=== PATIENT | male | born 1950 | race Caucasian/White ===

== ENCOUNTER → 2024-10-19 12:32 | Outpatient (REF) | payer MEDICARE, SELFPAY | LOC: WOUND 12:32 | PROVIDERS: ATTENDING PHYSICIAN Surgery; FAMILY PHYSICIAN Family Medicine | DX: M25.422 Effusion, left elbow (principal); S06.9X9S Unspecified intracranial injury with loss of consciousness of unspecified duration, sequela; X58.XXXS Exposure to other specified factors, sequela; G82.20 Paraplegia, unspecified; J41.1 Mucopurulent chronic bronchitis; M62.81 Muscle weakness (generalized); F33.42 Major depressive disorder, recurrent, in full remission | CPT/HCPCS: 99203 ==

== ENCOUNTER → 2024-10-24 13:44 | Outpatient (REF) | payer MEDICARE, SELFPAY | LOC: WOUND 13:44 | PROVIDERS: ATTENDING PHYSICIAN Surgery; FAMILY PHYSICIAN Family Medicine | DX: M25.422 Effusion, left elbow (principal); S06.9X9S Unspecified intracranial injury with loss of consciousness of unspecified duration, sequela; G82.20 Paraplegia, unspecified; F33.42 Major depressive disorder, recurrent, in full remission; J41.1 Mucopurulent chronic bronchitis; M62.81 Muscle weakness (generalized) | CPT/HCPCS: 99213 ==

== ENCOUNTER → 2024-10-30 11:22 | Outpatient (REF) | payer MEDICARE, SELFPAY | LOC: WOUND 11:22 | PROVIDERS: ATTENDING PHYSICIAN Surgery | DX: M25.422 Effusion, left elbow (principal); L03.114 Cellulitis of left upper limb; S06.9X9S Unspecified intracranial injury with loss of consciousness of unspecified duration, sequela; G82.20 Paraplegia, unspecified; F33.42 Major depressive disorder, recurrent, in full remission; J41.1 Mucopurulent chronic bronchitis; M62.81 Muscle weakness (generalized) | CPT/HCPCS: 99213 ==

== ENCOUNTER 2024-10-30 11:44 | Emergency (ER) | payer MEDICARE, SELFPAY ==
[2024-10-30 11:53] VITALS: BP 159/89
--- NOTE | 2024-10-30 13:29 | ED.GENMED ---
History of Present Illness
<Josefa Chang MD, Resident - Last Filed: 10/30/24 15:54>
General
Chief Complaint: Skin Problem
Time Seen by Provider: 10/30/24 12:59
History of Present Illness
History of Present Illness:
74 y/o male with pmhx of HTN, COPD, TBI presenting to the ED with progressive swelling of left upper extremity. Pt was seen by Dr. Davis at wound [facility] and was advised to come to the ED to be admitted for surgical drainage of olecranon
bursitis in the OR. Pt had a fall in August and was seen by an orthopedics doctor. X ray was negative for fracture at that time. Pt has been seeing wound care since September for olecranon bursitis but has symptoms have worsened over the past week.
Was seen by his PCP and was started on Bactrim since Wednesday. Denies any systemic symptoms. Patient has an appointment with his orthopedic doctor on .
Past History
<Josefa Chang MD, Resident - Last Filed: 10/30/24 15:54>
Past History
ED Past Medical History: COPD, HTN, Seizures and Other (Traumatic brain injury)
ED Past Surgical History: Other
Social History
Tobacco: Non-smoker
Alcohol: None
Drug: None
Personal: Other
Living: assisted living
Employment: Not employed
Family History
Family History: Other
Review of Systems
<Josefa Chang MD, Resident - Last Filed: 10/30/24 15:54>
Review of Systems
Constitutional: Reports no symptoms
EENT: Reports no symptoms
Respiratory: Reports no symptoms
Cardiac: Reports no symptoms
ABD/GI: Reports no symptoms
: Reports no symptoms
Musculoskeletal: Reports other (left elbow pain)
Skin: Reports other (swelling of left arm)
Neurological: Reports no symptoms
Endocrine: Reports no symptoms
Hematologic/Lymphatic: Reports no symptoms
Psychiatric: Reports no symptoms
Phy Exam
<Josefa Chang MD, Resident - Last Filed: 10/30/24 15:54>
Physical Exam
Physical Exam:
GENERAL: Alert, in no apparent distress, c/w TBI
EYE: pupils equal and reactive
NECK: Supple, no significant adenopathy.
ENT: o/p clr, mmm.
CARDIAC: Regular rate and rhythm.
LUNGS: Clear breath sounds bilaterally, no acute respiratory distress, no wheezes/rales/rhonchi
ABDOMEN: Soft, without focal tenderness, no r/g, no cvat
NEUROLOGICAL: Alert and oriented, disconjugate gaze, equal weakness of all extremities.
SKIN: Warm and dry, skin intact.
MUSCULOSKELETAL: No edema, well perfused.
Left Upper Extremity: Swelling of the left upper extremity from elbow to hand. Olecranon bursitis with open draining wound (serosanguinous fluid). Warm, tender, and red on touch. Distal pulses palpated. ROM normal.
PSYCH: Limited judgement and insight, appropriate interaction.
Course
<Josefa Chang MD, Resident - Last Filed: 10/30/24 15:54>
Orders/Labs/Results
Orders:
Orders
10/30/24 13:55
Basic Metabolic Panel Urgent
Complete Blood Count/With Diff Urgent
10/30/24 14:04
Wound Culture [Wound/Abscess/Other Culture] Urgent
WILFRIDO Source: Elbow
Specimen Description: Left
Date Specimen was Collected: 10/30/24
Time Specimen was Collected: 13:57
Abnormal Lab Results
10/30/24
13:55
MCHC 32.8 L g/dL
(33.0-37.0)
Absolute Monos (auto) 1.2 H 10^3/uL
(0.1-0.6)
Monocytes % 13.6 H %
(1.7-9.3)
Glucose 109 H mg/dl
(70-99)
10/30/24 13:55
10/30/24 13:55
Vital Signs
Initial and Last Documented VS:
Initial Vital Signs
Temp Pulse Resp BP Pulse Ox
98.4 F 74 16 159/89 96
10/30/24 11:53 10/30/24 11:53 10/30/24 11:53 10/30/24 11:53 10/30/24 11:53
Last Documented Vital Signs
Temp Pulse Resp BP Pulse Ox
98.4 F 78 18 153/64 99
10/30/24 11:53 10/30/24 14:00 10/30/24 14:00 10/30/24 14:00 10/30/24 14:18
<Loyd Lamas, DO - Last Filed: 10/30/24 15:15>
Orders/Labs/Results
Orders:
Orders
10/30/24 13:55
Basic Metabolic Panel Urgent
Complete Blood Count/With Diff Urgent
10/30/24 14:04
Wound Culture [Wound/Abscess/Other Culture] Urgent
WILFRIDO Source: Elbow
Specimen Description: Left
Date Specimen was Collected: 10/30/24
Time Specimen was Collected: 13:57
Abnormal Lab Results
10/30/24
13:55
MCHC 32.8 L g/dL
(33.0-37.0)
Absolute Monos (auto) 1.2 H 10^3/uL
(0.1-0.6)
Monocytes % 13.6 H %
(1.7-9.3)
Glucose 109 H mg/dl
(70-99)
10/30/24 13:55
10/30/24 13:55
Vital Signs
Initial and Last Documented VS:
Initial Vital Signs
Temp Pulse Resp BP Pulse Ox
98.4 F 74 16 159/89 96
10/30/24 11:53 10/30/24 11:53 10/30/24 11:53 10/30/24 11:53 10/30/24 11:53
Last Documented Vital Signs
Temp Pulse Resp BP Pulse Ox
98.4 F 78 18 153/64 99
10/30/24 11:53 10/30/24 14:00 10/30/24 14:00 10/30/24 14:00 10/30/24 14:18
<Josefa Chang MD, Resident - Last Filed: 10/30/24 15:54>
MDM/Problems Addressed
Differential Diagnosis Includes:
Acute olecranon bursitis
Infection of the soft tissue
MDM/Problems Addressed:
- CBC, CMP
- Discussed case with orthopedic physician, Dr. Childs, at 13.[address] Childs is able to take patient to the OR on Wednesday. Given patient is hemodynamically stable, we will wait for labs to decide outpatient vs inpatient follow-up.
<Josefa Chang MD, Resident - Last Filed: 10/30/24 15:54>
*Critical Care Note
Total Time (30-74mins, 75-104mins- exclusive of procedures): Not Applicable
ED Attending Note
<Josefa Chang MD, Resident - Last Filed: 10/30/24 15:54>
-
Portions of this chart may have been created with voice recognition software.� Occasional wrong word or��sound alike� substitutions may have occurred due to the inherent limitations of voice recognition software.
<Loyd Lamas DO - Last Filed: 10/30/24 15:15>
ED Attending Note
Patient seen and examined by attending physician: Yes
I performed a history and physical exam of patient and discussed management with resident, I reviewed resident's note and agree with documented findings and plan of care.: Yes
ED Attending Note:
I evaluated at bedside. I also communicated with Dr. Childs. White blood cell count is normal. Dr. Childs recommends outpatient management. I spoke to Dr. Davis earlier. He does have evidence of olecranon bursitis on exam with
serosanguineous drainage but no warmth or significant erythema. He does have cognitive deficits and disconjugate gaze.
Discharge Plan
Departure
Patient Disposition: Home (Routine Discharge)
Date of Disposition: 10/30/24
Time of Disposition: 15:11
Patient with high blood pressure during this ER visit?: Yes
Discharge Problem:
Bursitis, olecranon
Instructions: Olecranon Bursitis (DC)
Prescriptions:
No Action
propranolol 80 MG capsule,extended release 24 hr
160 mg PO DAILY
atorvastatin 10 MG tablet
10 mg PO DAILY
loperamide 2 MG capsule
4 mg PO Q4HPRN MDD 16MG/24 HOUR PRN (Reason: LOOSE STOOL)
divalproex 250 MG tablet,delayed release (DR/EC)
250 mg PO BID
Patient Comments:
04/02/2022: TAKEN W/ 500MG = 750MG
propranolol 60 MG capsule,extended release 24 hr
60 mg PO DAILY
divalproex 500 MG tablet,delayed release (DR/EC)
500 mg PO BID
Patient Comments:
04/02/2022: TAKEN W/ 250MG = 750MG
acetaminophen [Tylenol Extra Strength] 500 MG tablet
1,000 mg PO Q6HPRN PRN (Reason: mild pain/fever)
guaifenesin [Diabetic Tussin EX] 200 MG/10 ML liquid
200 mg PO Q6HPRN PRN (Reason: cough)
aspirin 325 MG tablet,delayed release (DR/EC)
325 mg PO DAILY
tamsulosin 0.4 MG capsule
0.4 mg PO HS
mirtazapine 15 MG tablet
15 mg PO HS
albuterol sulfate 1 PUFF HFA aerosol inhaler
2 puff inhalation R Q4HPRN PRN (Reason: asthma)
multivitamin with folic acid [Tab-A-Glenn] 1 TABLET tablet
1 tab PO QPM
ketoconazole 2 % Cream
1 applic TOPICAL BIDPRN PRN (Reason: antifungal)
Referrals:
Douglas Bower MD [Family Provider] -
Activity Restrictions/Additional Instructions:
The white blood cell count is normal. I did speak to Dr. Davis earlier. I also spoke to Dr. Childs (orthopedics with [facility]). He states that somebody from the office will be calling to help arrange close follow-up. Continue Bactrim for now.
Interventions
Interventions:
*Risk Screen - Suicide Last Done: 10/30/24 13:40
*General Assessment Last Done: 10/30/24 13:40
*Neglect/Abuse Screening Last Done: 10/30/24 13:40
ED- Fall Risk Assessment Last Done: 10/30/24 15:35
*ED COVID-19 Vaccine History Last Done: 10/30/24 13:40
*Nursing Disposition Last Done: 10/30/24 15:35
ED-Skin Assessment Last Done: 10/30/24 12:40
Discharge Date and Time
Discharge Date/Time: 10/30/24 15:36
Print Language: WELSH
[2024-10-30 14:00] VITALS: BP 153/64
[2024-10-30 14:15] LABS: % Basophils 0.7 % (0-2); % Eosinophils 3.8 % (0-6); % Immature Granulocytes 0.3 % (0-0.5); % Lymphocytes 25.3 % (20.5-51.1); % Monocytes 13.6 % (1.7-9.3); % Neutrophils 56.3 % (42.2-75.2); Absolute Basophils 0.1 10^3/uL (0-0.2); Absolute Eosinophils 0.3 10^3/uL (0-0.7); Absolute Lymphocytes 2.2 10^3/uL (1.2-3.4); Absolute Monocytes 1.2 10^3/uL (0.1-0.6); Absolute Neutrophils 4.9 10^3/uL (1.4-6.5); Hematocrit 46.1 % (39.0-52.0); Hemoglobin 15.1 g/dL (13.0-18.0); Mean Corp Hgb Conc. 32.8 g/dL (33.0-37.0); Mean Corpuscular Hgb 29.8 pg (27.0-31.0); Mean Corpuscular Volume 91.1 fL (80.0-94.0); Mean Platelet Volume 8.7 fL (7.4-10.4); Nucleated Red Blood Cells % 0 % (-); Platelet Count 220 10^3/uL (130-400); Red Blood Cell Count 5.06 10^6/uL (4.70-6.10); Red Cell Dist. Width 12.6 % (11.5-14.5); White Blood Cell Count 8.7 10^3/uL (4.8-10.8)
[2024-10-30 14:30] LABS: Blood Urea Nitrogen 17 mg/dl (9-20); Calcium 9.2 mg/dl (8.4-10.2); Carbon Dioxide 28 mmol/L (22-30); Chloride 100 mmol/L (98-107); Glucose 109 mg/dl (70-99); Sodium 138 mmol/L (135-145); eGFR > 60.00
== END 2024-10-30 15:36 | disposition home or self-care (01) ==
LOC: EMR 11:44
PROVIDERS: EMERGENCY PHYSICIAN Emergency Medicine; FAMILY PHYSICIAN Family Medicine
DX: M70.22 Olecranon bursitis, left elbow (principal); I10 Essential (primary) hypertension
CPT/HCPCS: 99283; 80048; 85025; 87070; 87205

== ENCOUNTER 2024-11-02 19:50 | Emergency (ER) | payer MEDICARE, SELFPAY ==
[2024-11-02 19:54] VITALS: BP 133/78; BMI 31.2
--- NOTE | 2024-11-02 20:32 | ED.GENMED ---
History of Present Illness
General
Chief Complaint: Fall
Source: patient and custodial records
Exam Limitations: none
Time Seen by Provider: 11/02/24 20:01
History of Present Illness
History of Present Illness:
This is a 74 year old male that comes in with by ambulance with c/o fall. States that he doesn't walk well due to the TBI. States that he fell tonight and hit the left elbow. States that he had some bleeding so they sent patient in. Patient states
that he did not hit his head or have any LOC. Denies any fever, chills, chest pain, SOB, abd pain, nausea, vomiting, diarrhea, headache, dizziness, urinary burning.
Past History
Past History
ED Past Medical History: COPD, CVA, HTN, Seizures, Psychiatric (Depression) and Other (Traumatic brain injury, Spinal stenosis, Diverticulosis, Glaucoma, )
ED Past Surgical History: Orthopedic (Spinal surgery, Left elbow surgery) and Other (Right hernia repair)
Social History
Tobacco: Former smoker
Alcohol: None
Drug: None
Personal: Other
Living: assisted living
Employment: Not employed
Family History
Family History: Other
Review of Systems
Review of Systems
All Other Systems: ROS reviewed and negative except as documented in HPI and ROS
Constitutional: Reports no symptoms; Denies fever or chills
EENT: Reports no symptoms
Respiratory: Reports no symptoms; Denies cough or trouble breathing
Cardiac: Reports no symptoms; Denies chest pain
ABD/GI: Reports no symptoms; Denies abdominal pain, nausea, vomiting or diarrhea
: Reports no symptoms; Denies dysuria, frequency or urgency
Musculoskeletal: Reports other (Bleeding from surgical site left elbow)
Skin: Reports no symptoms
Neurological: Reports no symptoms; Denies dizzy or headache
Psychiatric: Reports no symptoms
Phy Exam
General Physical Exam
General Presentation: no apparent distress
General age: appears stated age
General Skin: warm and dry
General Habitus: elderly
General Mental: usual mental status (Able to answer questions)
General Hydration: appears well hydrated
ENT Exam
ENT Exam: TM's normal, pharynx normal and neck supple
Cardiovascular Exam
Cardiovascular Exam: regular rate/rhythm, no edema and normal peripheral pulses
Pulmonary Exam
Pulmonary Exam: lungs clear, no respiratory distress, no rales, chest non tender, no crackles, no rhonchi, no wheezing and no cough
Gastrointestinal Exam
Gastrointestinal Exam: normal bowel sounds, non tender, soft, no organomegaly, no pulsatile mass and non distended
Musculoskeletal Exam
Musculoskeletal Exam: full ROM and other (Left elbow dressing taken down. No active bleeding at this time. Senath noted. )
Skin Exam
Skin Exam: normal color, warm/dry, no rash, no petechia and other (Left elbow incision line with romulo clean and dry. Negative for any redness)
Psychiatric Exam
Psychiatric Exam: normal mood/affect
Course
Orders/Labs/Results
Orders:
Orders
11/02/24 20:31
Elbow, 3 view, Left [CR Elbow - Left Min 3 Views ] Urgent
Comment:
Reason For Exam: fall, recent surgery
Vital Signs
Initial and Last Documented VS:
Initial Vital Signs
Temp Pulse Resp BP Pulse Ox
98.3 F 73 16 133/78 98
11/02/24 19:54 11/02/24 19:54 11/02/24 19:54 11/02/24 19:54 11/02/24 19:54
Last Documented Vital Signs
Temp Pulse Resp BP Pulse Ox
98.3 F 74 16 133/78 98
11/02/24 19:54 11/02/24 20:00 11/02/24 19:54 11/02/24 19:54 11/02/24 19:54
MDM/Problems Addressed
Differential Diagnosis Includes:
Bleeding from surgical site
MDM/Problems Addressed:
This is a 74 year old male that comes in with c/o bleeding form the left elbow after fall. States that he did not hit his head or have any LOC. states that with his brain injury it makes it hard for him to walk.
Will get X-ray and redress surgical site.
Back into see patient. Explained that his X-ray is negative for any acute process. Dressing has been applied and there has not been any further bleeding. Patient to follow up with the paid search specialist. Return with any concerns.
Chronic conditions affecting care:
NA
Acute Exacerbation and/or Progression of Chronic Illness:
NA
*Radiology
Radiology exam reviewed: radiology read reviewed (left elbow-Postsurgical change of the left elbow. No evidence of acute osseous injury. Mild degenerative disease. )
*Pulse Oximetry
Patient hypoxic: no
*EKG
Interpreted by ED Provider?: NA
Rate: EKG- N/A
*Multifold Operator Interpretation
Rate: Multifold Operator- N/A
*Critical Care Note
Total Time (30-74mins, 75-104mins- exclusive of procedures): Not Applicable
ED Attending Note
-
Portions of this chart may have been created with voice recognition software.� Occasional wrong word or��sound alike� substitutions may have occurred due to the inherent limitations of voice recognition software.
Discharge Plan
Departure
Patient Disposition: Home (Routine Discharge)
Date of Disposition: 11/02/24
Time of Disposition: 22:44
Patient with high blood pressure during this ER visit?: Yes
Condition: Good
Covid-19: Not Applicable
Discharge Problem:
Accidental fall, Bleeding from surgical site
Instructions: Wound Care (DC), Preventing falls in adults, BLOOD PRESSURE
Prescriptions:
No Action
propranolol 80 MG capsule,extended release 24 hr
160 mg PO DAILY
atorvastatin 10 MG tablet
10 mg PO DAILY
loperamide 2 MG capsule
4 mg PO Q4HPRN MDD 16MG/24 HOUR PRN (Reason: LOOSE STOOL)
divalproex 250 MG tablet,delayed release (DR/EC)
250 mg PO BID
Patient Comments:
04/02/2022: TAKEN W/ 500MG = 750MG
propranolol 60 MG capsule,extended release 24 hr
60 mg PO DAILY
divalproex 500 MG tablet,delayed release (DR/EC)
500 mg PO BID
Patient Comments:
04/02/2022: TAKEN W/ 250MG = 750MG
acetaminophen [Tylenol Extra Strength] 500 MG tablet
1,000 mg PO Q6HPRN PRN (Reason: mild pain/fever)
guaifenesin [Diabetic Tussin EX] 200 MG/10 ML liquid
200 mg PO Q6HPRN PRN (Reason: cough)
aspirin 325 MG tablet,delayed release (DR/EC)
325 mg PO DAILY
tamsulosin 0.4 MG capsule
0.4 mg PO HS
mirtazapine 15 MG tablet
15 mg PO HS
albuterol sulfate 1 PUFF HFA aerosol inhaler
2 puff inhalation R Q4HPRN PRN (Reason: asthma)
multivitamin with folic acid [Tab-A-Glenn] 1 TABLET tablet
1 tab PO QPM
ketoconazole 2 % Cream
1 applic TOPICAL BIDPRN PRN (Reason: antifungal)
Activity Restrictions/Additional Instructions:
As discussed, the Left elbow X-ray is normal. The dressing was removed and there is no active bleeding form the surgical site. Please follow up with the paid search specialist for further evaluation. IF YOU HAVE ANY OTHER CONCERNS PLEASE RETURN TO
THE EMERGENCY ROOM.
Interventions
Interventions:
*Risk Screen - Suicide Last Done: 11/02/24 19:54
*General Assessment Last Done: 11/02/24 19:54
*Neglect/Abuse Screening Last Done: 11/02/24 19:54
ED- Fall Risk Assessment Last Done: 11/02/24 19:54
ED-Musculoskeletal Assessment Last Done: 11/02/24 19:54
Discharge Date and Time
Print Language: CROATIAN
[2024-11-03] VITALS: BP 123/68
== END 2024-11-03 02:54 ==
LOC: EMR 19:50
PROVIDERS: EMERGENCY PHYSICIAN Emergency Medicine; FAMILY PHYSICIAN Family Medicine
DX: L76.22 Postprocedural hemorrhage of skin and subcutaneous tissue following other procedure (principal); W19.XXXA Unspecified fall, initial encounter; I10 Essential (primary) hypertension; J44.9 Chronic obstructive pulmonary disease, unspecified; Z86.73 Personal history of transient ischemic attack (TIA), and cerebral infarction without residual deficits; Z87.820 Personal history of traumatic brain injury; Z87.891 Personal history of nicotine dependence
CPT/HCPCS: 99283; 73080

== ENCOUNTER 2025-02-25 04:59 | Emergency (ER) | payer MEDICARE, SELFPAY ==
[2025-02-25] VITALS (7 sets, daily range): BP systolic 118–148; BP diastolic 71–102; BMI 31.1
--- NOTE | 2025-02-25 06:50 | ED.GENMED ---
History of Present Illness
General
Chief Complaint: Fall
Source: patient and ambulance crew
Exam Limitations: none
Time Seen by Provider: 02/25/25 06:27
Nursing documentation reviewed up to this point in time: agreed with
History of Present Illness
History of Present Illness:
74-year-old male presents emergency room complaining of falling out of bed this morning. He denies any injuries. 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
Past History
Past History
ED Past Medical History: COPD, CVA, HTN, Seizures, Psychiatric (Depression) and Other (Traumatic brain injury, Spinal stenosis, Diverticulosis, Glaucoma, )
ED Past Surgical History: Orthopedic (Spinal surgery, Left elbow surgery) and Other (Right hernia repair)
Social History
Tobacco: Former smoker
Alcohol: None
Drug: None
Personal: Other
Living: assisted living
Employment: Not employed
Family History
Family History: Other
Review of Systems
Review of Systems
Allergies reviewed?: Yes
All Other Systems: Not applicable
Constitutional: Reports no symptoms
EENT: Reports no symptoms
Respiratory: Reports no symptoms
Cardiac: Reports no symptoms
ABD/GI: Reports no symptoms
: Reports no symptoms
Musculoskeletal: Reports no symptoms
Skin: Reports no symptoms
Neurological: Reports no symptoms
Endocrine: Reports no symptoms
Hematologic/Lymphatic: Reports no symptoms
Psychiatric: Reports no symptoms
Phy Exam
Physical Exam
Physical Exam:
Physical Exam
General: no apparent distress, not acutely ill
Neck: supple. no meningeal signs. normal posterior pharynx
Heart: s1/s2 regular rate and rhythm, no murmur. equal radial
pulses.
HEENT: Left pupil larger than right, lens implant left pupil, EOMI
Lungs: no acute respiratory distress. clear bilaterally
Abdomen: normal bowel sounds. not tender. no CVAT
Neuro: alert and oriented. no focal neurological deficits cranial nerves II through XII intact, slurred speech at baseline
Skin: no rash
Psychiatric: well kept. interactive and cooperative
Extremities: no edema. no calf tenderness. negative homans. good distal pulses
Course
Orders/Labs/Results
Orders:
Orders
02/25/25 06:45
CT Head W/o Iv Contrast Urgent
Comment:
Reason For Exam: fall
Vital Signs
Initial and Last Documented VS:
Initial Vital Signs
Temp Pulse Resp BP Pulse Ox
98.6 F 88 23 148/91 92
02/25/25 05:02 02/25/25 05:02 02/25/25 05:02 02/25/25 05:02 02/25/25 05:02
Last Documented Vital Signs
Temp Pulse Resp BP Pulse Ox
98.6 F 74 21 132/73 96
02/25/25 05:02 02/25/25 06:50 02/25/25 06:50 02/25/25 06:50 02/25/25 06:50
MDM/Problems Addressed
Differential Diagnosis Includes:
Intracranial hemorrhage, hip fracture
MDM/Problems Addressed:
74-year-old male with fall, no signs of injury. CT head normal. Stable for discharge.
*Radiology
Radiology exam reviewed: radiology read reviewed (CT head no acute findings)
*Pulse Oximetry
Patient hypoxic: no
*Critical Care Note
Total Time (30-74mins, 75-104mins- exclusive of procedures): Not Applicable
Data Reviewed
Review of Other/Old Records Reveals: Records (lens implant left eye)
Source: records
Patient Management
Social determinants of health affecting care: Living situation and Strong social support
Escalation/DeEscalation of care consider admission/obs:
Admit not indicated
ED Attending Note
-
Portions of this chart may have been created with voice recognition software.� Occasional wrong word or��sound alike� substitutions may have occurred due to the inherent limitations of voice recognition software.
Discharge Plan
Departure
Patient Disposition: Long Term/SNF
Date of Disposition: 02/25/25
Time of Disposition: 07:43
Patient with high blood pressure during this ER visit?: Yes
Condition: Good
Discharge Problem:
Fall
Instructions: Preventing falls in adults, BLOOD PRESSURE
Prescriptions:
No Action
propranolol 80 MG capsule,extended release 24 hr
160 mg PO DAILY
atorvastatin 10 MG tablet
10 mg PO DAILY
loperamide 2 MG capsule
4 mg PO Q4HPRN MDD 16MG/24 HOUR PRN (Reason: LOOSE STOOL)
divalproex 250 MG tablet,delayed release (DR/EC)
250 mg PO BID
Patient Comments:
04/02/2022: TAKEN W/ 500MG = 750MG
propranolol 60 MG capsule,extended release 24 hr
60 mg PO DAILY
divalproex 500 MG tablet,delayed release (DR/EC)
500 mg PO BID
Patient Comments:
04/02/2022: TAKEN W/ 250MG = 750MG
acetaminophen [Tylenol Extra Strength] 500 MG tablet
1,000 mg PO Q6HPRN PRN (Reason: mild pain/fever)
guaifenesin [Diabetic Tussin EX] 200 MG/10 ML liquid
200 mg PO Q6HPRN PRN (Reason: cough)
aspirin 325 MG tablet,delayed release (DR/EC)
325 mg PO DAILY
tamsulosin 0.4 MG capsule
0.4 mg PO HS
mirtazapine 15 MG tablet
15 mg PO HS
albuterol sulfate 1 PUFF HFA aerosol inhaler
2 puff inhalation R Q4HPRN PRN (Reason: asthma)
multivitamin with folic acid [Tab-A-Glenn] 1 TABLET tablet
1 tab PO QPM
ketoconazole 2 % Cream
1 applic TOPICAL BIDPRN PRN (Reason: antifungal)
Referrals:
Tawanda Bower MD [Family Provider] - Call in 1-3 days for appt
Interventions
Interventions:
*Risk Screen - Suicide Last Done: 02/25/25 05:02
*General Assessment Last Done: 02/25/25 05:02
*Neglect/Abuse Screening Last Done: 02/25/25 05:02
*ED- Fall Risk Assessment Last Done: 02/25/25 05:22
*ED COVID-19 Vaccine History Last Done: 02/25/25 05:22
ED-Musculoskeletal Assessment Last Done: 02/25/25 05:17
ED- Neurological Assessment Last Done: 02/25/25 05:17
ED-Skin Assessment Last Done: 02/25/25 05:17
Discharge Date and Time
Print Language: CONGOLESE
--- NOTE | 2025-02-25 09:46 | EDRN ---
this RN called [facility] at [phone] to notify the facility that the pt is going to be sent back, this RN spoke with [facility] who stated that they wanted the pt re-evaluated by the provider, the individual stated that the pt had c/o pain
and wanted the provider to evaluate the pt again, Dr. Murdock spoke with the individual at [facility] and Dr. Murdock wants the pt to be sent back, verbal report given to [facility]
== END 2025-02-25 09:52 ==
LOC: EMR 04:59
PROVIDERS: EMERGENCY PHYSICIAN Emergency Medicine; FAMILY PHYSICIAN Family Medicine
DX: Z04.89 Encounter for examination and observation for other specified reasons (principal); W19.XXXA Unspecified fall, initial encounter; J44.9 Chronic obstructive pulmonary disease, unspecified; I10 Essential (primary) hypertension; Z87.820 Personal history of traumatic brain injury; Z87.891 Personal history of nicotine dependence
CPT/HCPCS: 99284; 70450

== ENCOUNTER → 2025-03-08 10:50 | Outpatient (REF) | payer MEDICARE, SELFPAY | LOC: MRI 3T 10:50 | PROVIDERS: ATTENDING PHYSICIAN Family Medicine | DX: R26.89 Other abnormalities of gait and mobility (principal) | CPT/HCPCS: 70551 ==

== ENCOUNTER 2025-11-20 18:47 | Emergency (ER) | payer MEDICARE, SELFPAY ==
[2025-11-20 19:03] VITALS: BP 131/96
[2025-11-20 19:05] VITALS: BP 131/96
[2025-11-20 19:16] LABS: Hematocrit 46.9 % (39.0-52.0); Hemoglobin 15.6 g/dL (13.0-18.0); Mean Corp Hgb Conc. 33.3 g/dL (33.0-37.0); Mean Corpuscular Volume 89.8 fL (80.0-94.0); Nucleated Red Blood Cells % 0 % (-); Platelet Count 158 10^3/uL (130-400); Red Cell Dist. Width 12.9 % (11.5-14.5)
[2025-11-20 19:32] LABS: ALT (SGPT) 18 U/L (0-50); AST (SGOT) 25 U/L (17-59); Albumin 4.4 g/dl (3.5-5.0); Alkaline Phosphatase 86 U/L (38-126); Blood Urea Nitrogen 16 mg/dl (9-20); Calcium 9.1 mg/dl (8.4-10.2); Carbon Dioxide 29 mmol/L (22-30); Chloride 100 mmol/L (98-107); Glucose 108 mg/dl (70-99); Potassium 4.4 mmol/L (3.5-5.1); Sodium 137 mmol/L (135-145); Total Protein 7.2 g/dl (6.3-8.2); eGFR > 60.00
[2025-11-20 20:00] VITALS: BP 148/77
--- NOTE | 2025-11-20 20:43 | ED.GENMED ---
History of Present Illness
<Evaristo Johnson MD, Resident - Last Filed: 11/20/25 22:20>
General
Chief Complaint: Fall
Time Seen by Provider: 11/20/25 20:29
History of Present Illness
History of Present Illness:
75 yo M PMH TBI, COPD, HTN presenting from facility due to a fall. He denies any focal injuries, and recalls falling. Denies syncope. denies headstrike.
He has presented in 01/2025 and 10/2024 for similar complaints and had unremarkable CT head noncontrast at that time. Per chart documentation, he is reportedly at baseline.
Past History
<Evaristo Johnson MD, Resident - Last Filed: 11/20/25 22:20>
Past History
ED Past Medical History: COPD, CVA, HTN, Seizures, Psychiatric (Depression) and Other (Traumatic brain injury, Spinal stenosis, Diverticulosis, Glaucoma, )
ED Past Surgical History: Orthopedic (Spinal surgery, Left elbow surgery) and Other (Right hernia repair)
Social History
Tobacco: Former smoker
Alcohol: None
Drug: None
Personal: Other
Living: assisted living
Employment: Not employed
Family History
Family History: Other
Review of Systems
<Evaristo Johnson MD, Resident - Last Filed: 11/20/25 22:20>
Review of Systems
Constitutional: Reports no symptoms
EENT: Reports no symptoms
Respiratory: Reports no symptoms
Cardiac: Reports no symptoms
ABD/GI: Reports no symptoms
Musculoskeletal: Reports no symptoms
Phy Exam
<Evaristo Johnson MD, Resident - Last Filed: 11/20/25 22:20>
Physical Exam
Physical Exam:
VS: 148/77; HR 64; T 99.2; O2sat 96%
General: no acute distress
CV: no murmurs on my exam
Pulm: CTAB
GI: no tenderness to palpation, + bowel sounds
MSK: no lower extremity edema
Neuro: AOx3, left eye is abducted, which appears to be at baseline
Course
<Evaristo Johnson MD, Resident - Last Filed: 11/20/25 22:20>
Orders/Labs/Results
Orders:
Orders
11/20/25 19:04
Electrocardiogram (*1) Urgent
Reason for Study: Chest Pain
EKG- Treatment ONCE
11/20/25 19:11
Complete Blood Count/With Diff Urgent
Comprehensive Metabolic Panel Urgent
11/20/25 20:49
CT Cervical Spine W/o Iv Contr Urgent
Comment:
Reason For Exam: fall
11/20/25 20:50
CT Head W/o Iv Contrast Urgent
Comment:
Reason For Exam: fall
Abnormal Lab Results
11/20/25
19:11
Absolute Monos (auto) 1.1 H 10^3/uL
(0.1-0.6)
Monocytes % 13.3 H %
(1.7-9.3)
Glucose 108 H mg/dl
(70-99)
11/20/25 19:11
11/20/25 19:11
Vital Signs
Initial and Last Documented VS:
Initial Vital Signs
Pulse Resp Pulse Ox
69 22 96
11/20/25 18:52 11/20/25 18:52 11/20/25 18:52
Last Documented Vital Signs
Temp Pulse Resp BP Pulse Ox
99.2 F 65 17 155/72 97
11/20/25 19:05 11/20/25 21:30 11/20/25 21:30 11/20/25 21:00 11/20/25 20:45
<Francois Rose, DO - Last Filed: 11/20/25 22:43>
Orders/Labs/Results
Orders:
Orders
11/20/25 19:04
Electrocardiogram (*1) Urgent
Reason for Study: Chest Pain
EKG- Treatment ONCE
11/20/25 19:11
Complete Blood Count/With Diff Urgent
Comprehensive Metabolic Panel Urgent
11/20/25 20:49
CT Cervical Spine W/o Iv Contr Urgent
Comment:
Reason For Exam: fall
11/20/25 20:50
CT Head W/o Iv Contrast Urgent
Comment:
Reason For Exam: fall
Abnormal Lab Results
11/20/25
19:11
Absolute Monos (auto) 1.1 H 10^3/uL
(0.1-0.6)
Monocytes % 13.3 H %
(1.7-9.3)
Glucose 108 H mg/dl
(70-99)
11/20/25 19:11
11/20/25 19:11
Vital Signs
Initial and Last Documented VS:
Initial Vital Signs
Pulse Resp Pulse Ox
69 22 96
11/20/25 18:52 11/20/25 18:52 11/20/25 18:52
Last Documented Vital Signs
Temp Pulse Resp BP Pulse Ox
99.2 F 65 17 155/72 97
11/20/25 19:05 11/20/25 21:30 11/20/25 21:30 11/20/25 21:00 11/20/25 20:45
<Evaristo Johnson MD, Resident - Last Filed: 11/20/25 22:20>
MDM/Problems Addressed
Differential Diagnosis Includes:
TBI progression, arrhythmia, vasovagal, orthostatic, metabolic abnormality
MDM/Problems Addressed:
75 yo M PMH TBI, COPD, CVA, HTN, seizures p/w fall. He denies headstrike, syncope.
He denies headache, chest pain, dyspnea, abdominal pain.
he also denies focal pain in any extremities, no evidence of skin trauma visible.
EKG showed sinus rhythm with PACs
electrolytes are within normal limits
unfortunately, etiology could be progression of TBI (he presented to ED for similar complaint in 01/2025 and 10/2024).
Plan:
CT Head noncontrast
CT C-spine noncontrast
Update:
CT Head noncontrast: No acute intracranial abnormality.
CT C-spine noncontrast: * pending
<Evaristo Johnson MD, Resident - Last Filed: 11/20/25 22:20>
*Pulse Oximetry
SaO2: 96
Nasal Cannula flow liters per minute: 3
Oxygen Mode of Delivery: Room air
Patient hypoxic: no
*Critical Care Note
Total Time (30-74mins, 75-104mins- exclusive of procedures): Not Applicable
<Francois Rose DO - Last Filed: 11/20/25 22:43>
*Radiology
Radiology exam reviewed: radiology read reviewed
*EKG
Interpreted by ED Provider?: Yes
Interpretation: normal
Comparison EKG: no comparison EKG present
Heart Rate: 78
Rate: normal
Rhythm: sinus
Ischemia: non-specific ST changes
*[employer] Interpretation
Rate: normal
Interpretation: normal
Heart Rate: 78
Rhythm: sinus
*Critical Care Note
Total Time (30-74mins, 75-104mins- exclusive of procedures): Not Applicable
ED Attending Note
<Evaristo Johnson MD, Resident - Last Filed: 11/20/25 22:20>
-
Portions of this chart may have been created with voice recognition software.� Occasional wrong word or��sound alike� substitutions may have occurred due to the inherent limitations of voice recognition software.
<Francois Rose, DO - Last Filed: 11/20/25 22:43>
ED Attending Note
Patient seen and examined by attending physician: Yes
I performed a history and physical exam of patient and discussed management with resident, I reviewed resident's note and agree with documented findings and plan of care.: Yes
ED Attending Note:
Seen with resident examined independently 75-year-old male TBI 1975 send then he fell out of his wheelchair, here he is following commands moving all extremities labs are noted imaging pending
Discharge Plan
Departure
Patient Disposition: Home (Routine Discharge)
Date of Disposition: 11/20/25
Time of Disposition: 22:42
Patient with high blood pressure during this ER visit?: No
Condition: Good
Discharge Problem:
Fall
Instructions: Head Injury in Adults (DC)
Prescriptions:
No Action
propranolol 80 MG capsule,extended release 24 hr
160 mg PO DAILY
atorvastatin 10 MG tablet
10 mg PO DAILY
loperamide 2 MG capsule
4 mg PO Q4HPRN MDD 16MG/24 HOUR PRN (Reason: LOOSE STOOL)
divalproex 250 MG tablet,delayed release (DR/EC)
250 mg PO BID
Patient Comments:
04/02/2022: TAKEN W/ 500MG = 750MG
propranolol 60 MG capsule,extended release 24 hr
60 mg PO DAILY
divalproex 500 MG tablet,delayed release (DR/EC)
500 mg PO BID
Patient Comments:
04/02/2022: TAKEN W/ 250MG = 750MG
acetaminophen [Tylenol Extra Strength] 500 MG tablet
1,000 mg PO Q6HPRN PRN (Reason: mild pain/fever)
guaifenesin [Diabetic Tussin EX] 200 MG/10 ML liquid
200 mg PO Q6HPRN PRN (Reason: cough)
aspirin 325 MG tablet,delayed release (DR/EC)
325 mg PO DAILY
tamsulosin 0.4 MG capsule
0.4 mg PO HS
mirtazapine 15 MG tablet
15 mg PO HS
albuterol sulfate 1 PUFF HFA aerosol inhaler
2 puff inhalation R Q4HPRN PRN (Reason: asthma)
multivitamin with folic acid [Tab-A-Glenn] 1 TABLET tablet
1 tab PO QPM
ketoconazole 2 % Cream
1 applic TOPICAL BIDPRN PRN (Reason: antifungal)
Referrals:
Douglas Bower MD [Family Provider, Family Practice]
Interventions
Interventions:
*General Assessment Last Done: 11/20/25 19:05
*Neglect/Abuse Screening Last Done: 11/20/25 19:08
*ED COVID-19 Vaccine History Last Done: 11/20/25 19:05
*ED Influenza Vaccine History Last Done: 11/20/25 19:05
[facility] Fall Risk Assessment Tool Last Done: 11/20/25 19:05
*Risk Screen - Suicide (C-SSRS) Last Done: 11/20/25 19:08
ED-Musculoskeletal Assessment Last Done: 11/20/25 19:09
ED- Neurological Assessment Last Done: 11/20/25 19:09
ED-Skin Assessment Last Done: 11/20/25 19:09
Discharge Date and Time
Print Language: OMANI
[2025-11-20 21:00] VITALS: BP 155/72
[2025-11-20 22:00] VITALS: BP 140/89
[2025-11-21] VITALS: BP 144/96
[2025-11-21 01:00] VITALS: BP 141/77
[2025-11-21 02:00] VITALS: BP 149/98
== END 2025-11-21 03:01 | disposition home or self-care (01) ==
LOC: EMR 18:47
PROVIDERS: EMERGENCY PHYSICIAN Emergency Medicine; FAMILY PHYSICIAN Family Medicine
DX: Z04.3 Encounter for examination and observation following other accident (principal); W05.0XXA Fall from non-moving wheelchair, initial encounter; Y92.129 Unspecified place in nursing home as the place of occurrence of the external cause; I49.1 Atrial premature depolarization; I10 Essential (primary) hypertension; J44.9 Chronic obstructive pulmonary disease, unspecified; H40.9 Unspecified glaucoma; F32.A Depression, unspecified; M48.00 Spinal stenosis, site unspecified; Z86.73 Personal history of transient ischemic attack (TIA), and cerebral infarction without residual deficits; Z87.891 Personal history of nicotine dependence
CPT/HCPCS: 99284; 70450; 72125; 80053; 85025; 93005